=== PATIENT | female | born 1960 | race Caucasian/White ===

== ENCOUNTER → 2017-10-08 | Outpatient (CLI) | payer BC | LOC: M.RAD 14:06 | DX: S99.921A Unspecified injury of right foot, initial encounter (principal); X58.XXXA Exposure to other specified factors, initial encounter; Y93.89 Activity, other specified; Y92.89 Other specified places as the place of occurrence of the external cause; Y99.8 Other external cause status ==

== ENCOUNTER → 2020-06-20 | Outpatient (CLI) | payer BC ==
[~2020-06-20] MED LIST: ASA81BEC PO; MEDROLDOSEPACK PO; MOBIC15 MG PO; VITAMIN D310 MC2 PO
--- NOTE | 2020-07-11 14:36 | PAINCON ---
[address] [address] PAIN MANAGEMENT CONSULTATION Name: LISA ACKERMAN Room: [facility]#: [id number] Admission: 06/20/20 Attend Phys: Mehul Smith MD Discharge: Date of : 58 Report #: [id number] THIS REPORT FOR: //name// cc: Karolyn Valadez Linda J. DO ~ CC: Karolyn Smith DATE OF SERVICE: 06/20/2020 CHIEF COMPLAINT: Back pain. HISTORY: The patient is a 60-year-old female who has been referred to the pain clinic because of pain and discomfort. She reports having pain in both buttocks areas. She also has pain in her hips. Her pain is worse when standing. It radiates down the posterior portion of her left leg. She has been using aspirin medications. Denies any recent trauma. Denies any change in bowel or bladder function. The patient has undergone physical therapy. She has had lumbar spine x-rays. Pain has been ongoing for greater than 3 months. She has tried muscle relaxants. Rest did not change her level of comfort. Notes there is increased pain while driving or when sitting for any length of time. Sometimes has difficulty sleeping because of the pain. She is sometimes awakened by the pain and discomfort. She has been working from home. Prolonged sitting at her table exacerbates the pain particularly when she twists or moves. She has not had chiropractic treatment. PAST MEDICAL HISTORY: Radiation therapy for stage 2B, T2 N1A MO infiltrating ductal carcinoma involving the left breast, chemotherapy, migraine headaches, acute embolism and thrombosis of deep vein in the lower extremity, hyperlipidemia, pulmonary embolism without acute cor pulmonale, lymphedema, intrinsic eczema. PAST SURGICAL HISTORY: Cholecystectomy 09/2002, uterine ablation for fibroids 07/2009, ankle surgery 01/2016, uterine fibroid embolization. ALLERGIES: No known drug allergies. CURRENT MEDICATIONS: Aspirin 81 mg, vitamin D 2000 units. Discontinued medications, Aromasin. REVIEW OF SYSTEMS: Generally unremarkable. DIAGNOSTIC DATA: MRI result dated 06/10/2020, 1. L3-L4, mild concentric disk bulge. Subtle annular fissure. Mild facet arthropathy. No significant spinal stenosis. Mild right greater than left [place]ral [place] [address] PAIN MANAGEMENT CONSULTATION Name: LISA ACKERMAN Room: [facility]#: [id number] Admission: 06/20/20 Attend Phys: Mehul Smith MD Discharge: Date of : 58 Report #: [id number] 2. L4-L5, trace 4 mm anterolisthesis. Concentric disk bulge with annular fissure, mildly asymmetric to the left. Moderate facet arthropathy and ligamentum flavum thickening. Mild spinal stenosis. Mild right and moderate left neural foraminal narrowing. 3. L5-S1, minimal disk bulge and facet arthropathy. No spinal stenosis or neural foraminal narrowing. Impression, mild spondylolisthesis of the lumbar spine, most notably at the L4-L5 level. There is a trace anterolisthesis. Mild concentric disk bulge and moderate facet arthropathy at the L4-L5 level resulting in mild spinal stenosis and moderate left and minimal right neural foraminal narrowing. PAIN CLINIC ASSESSMENT/PQRS: 1. Height 5 feet 6 inches, weight patient refused. 2. Vital Signs: Blood pressure 157/85, heart rate 69, respiratory rate 16, room air saturation is 98%, temperature 97.5. 3. Pain intensity 11/15. 4. Fall intensity: The patient has not fallen in the last 3 months. 5. Blood thinner: The patient is not on a blood thinning medication. 6. Hypertension: The patient is not being treated for hypertension. 7. Opioids greater than 6 weeks: The patient is not on a opioid regimen. 8. Risk assessment tool: Low for opioid use. 9. Functional assessment tool: Reviewed. 10. Recreational drug use: The patient denies. 11. Tobacco: The patient does not smoke. 12. Alcohol: The patient denies frequent use of alcoholic beverages. PHYSICAL EXAMINATION: GENERAL: The patient is a well-developed, well-nourished white female. Appears her stated age. She is alert and oriented x 3. Her affect is appropriate. Speech is fluent. HEENT: Normocephalic, atraumatic. Extraocular eye muscles intact. Sclerae nonicteric. Mucous membranes are moist. The patient is wearing a facial covering. NECK: Without adenopathy or JVD. HEART: Regular rate. LUNGS: Clear. ABDOMEN: Nontender. EXTREMITIES: Lower extremity muscle strength judged to be 5/5 for the major muscle groups in the lower extremity. The patient has pain and discomfort in the left buttocks area with pain radiating down into the left sciatic nerve with perception of weakness and pain. The patient without significant scoliosis, kyphosis or lordosis. Upper extremity muscle strength judged to be 5/5 for the major muscle groups in the upper extremity. Straight leg raise on the left is positive. [address] [address] PAIN MANAGEMENT CONSULTATION Name: LISA ACKERMAN Room: [facility]#: [id number] Admission: 06/20/20 Attend Phys: Mehul Smith MD Discharge: Date of : 58 Report #: [id number] IMPRESSION: 1. Lumbar radiculopathy involving the L4-L5 and L5-S1 nerve dermatomal area. 2. Radiation therapy for stage 2B, T2 N1A MO infiltrating ductal carcinoma involving the left breast, chemotherapy. 3. Migraine headaches. 4. Acute embolism and thrombosis of deep vein in the lower extremity. 5. Hyperlipidemia. 6. Pulmonary embolism without acute cor pulmonale. 7. Lymphedema. 8. Intrinsic eczema. RECOMMENDATIONS: We will have the patient return to the Pain Clinic. She will consider an epidural steroid injection. The patient will be provided with a Medrol Dosepak, which she will take over the next week. She will also try meloxicam 15 mg 1 p.o. daily. She will call us if she has any concerns. Again, the patient may be a candidate should she decide for an epidural steroid injection at the next visit. <ELECTRONICALLY SIGNED> By: Mehul Smith MD 07/11/20 [id number]. Yoel Smith MD /[facility]
== END ==
LOC: M.PC 09:10
PROVIDERS: ATTEND Anesthesiology Pain Medicine
DX: M54.5 Low back pain (principal); I10 Essential (primary) hypertension; Z79.899 Other long term (current) drug therapy